=== PATIENT | male | born 1970 | race Caucasian/White ===

== ENCOUNTER 2025-01-08 13:26 | Emergency (ER) | payer OTHER, SELFPAY ==
[2025-01-08 13:28] VITALS: BP 134/99
--- NOTE | 2025-01-08 13:42 | ED.GENMED ---
History of Present Illness
General
Chief Complaint: Dental Problem
Source: patient
Time Seen by Provider: 01/08/25 13:35
History of Present Illness
History of Present Illness:
54-year-old male states that a tooth 'broke' a few days ago. He has not yet seen a doctor in follow-up. He went to bed today and when he awoke from his nap he noted increasing pain at this area associated with swelling of the lower mouth under the
tongue. He denies change in voice, change in swallowing, dyspnea, chest pain, neck pain, lip or tongue swelling, nausea, vomiting, or other complaints. Patient takes oxycodone for neck pain, this has not helped his pain today.
Past History
Past History
ED Past Medical History: Cancer (renal), GERD, HTN and NIDDM
ED Past Surgical History: Orthopedic (C4-5, C5-6, L4-5, R hand surgery ), Urological (renal w/ resection of L kidney) and Other (myringotomy tube placement 2003)
Social History
Tobacco: Smoker
Alcohol: Occasional
Drug: None
Personal: Single
Living: with family
Employment: Employed
Family History
Family History: Other (reviewed and non-contributory)
Phy Exam
Physical Exam
Physical Exam:
GENERAL: Alert , in no apparent distress
EYE: pupils equal and reactive, no photophobia
NECK: Supple, no significant adenopathy, no swelling noted.
ENT: o/p clr, mmm, no trismus, no drool, voice clear. Patient has multiple dental caries with a partial tooth fracture noted #27 with minimal gingival swelling. No fluctuance, drainage, submental swelling, tongue protrusion, or swelling noted
elsewhere. Tooth tender to percussion
CARDIAC: Regular rate and rhythm .
LUNGS: Clear breath sounds bilaterally, no acute respiratory distress, no wheezes/rales/rhonchi
ABDOMEN: Soft, without focal tenderness, no r/g, no cvat
NEUROLOGICAL: Alert and oriented, no focal neuro deficits
SKIN: Warm and dry, skin intact.
MUSCULOSKELETAL: No edema, well perfused.
PSYCH: Normal and appropriate interaction.
Course
Orders/Labs/Results
Orders:
Orders
01/08/25 13:42
Ketorolac [Toradol] 15 mg IM NOW STA
Penicillin V Potassium [Pen Vk] 500 mg PO NOW STA
Vital Signs
Initial and Last Documented VS:
Initial Vital Signs
Temp Pulse Resp BP Pulse Ox
98.6 F 125 20 134/99 99
01/08/25 13:28 01/08/25 13:28 01/08/25 13:28 01/08/25 13:28 01/08/25 13:28
Last Documented Vital Signs
Temp Pulse Resp BP Pulse Ox
98.6 F 125 20 134/99 99
01/08/25 13:28 01/08/25 13:28 01/08/25 13:28 01/08/25 13:28 01/08/25 13:28
*Pulse Oximetry
SaO2: 99
Oxygen Mode of Delivery: Room air
Patient hypoxic: no
*Critical Care Note
Total Time (30-74mins, 75-104mins- exclusive of procedures): Not Applicable
Update Note
Update Note:
Patient presents to the Emergency Department with __intraoral pain
Number and Complexity of Problems Addressed at the Encounter
� Chronic conditions affecting care:
� Acute Exacerbation and/or Progression of Chronic Illness:
� Differential Diagnosis includes: But not limited to dental infection, Reinier's angina, dental fracture, etc. etc.
Amount and/or Complexity of Data to be Reviewed and Analyzed
� I performed an independent evaluation of and my interpretation is:
EKG:
CT:
Xrays:
Laboratory Studies:
Other:
� Review of other/old records reveals:
� Clinical information was obtained by an independent historian:
� Prescriptions/Medications Considered but not given:
� Further testing considered but not performed:
Risk of Complications and/or Morbidity or Mortality of Patient Management
� Social determinants of health affecting care:
� Discussion with other providers (PCP, Hospitalists, Consultants, etc):
� Escalation of care including admission/observation vs risk of discharge considered: Exam very consistent with dental infection, mild. No findings to suggest Reinier's angina or any swelling/infectious process that would suggest
compromise of airway/swallowing. Discussed with patient importance of close follow-up and reasons to return to the emergency department. We will start him on antibiotics and advise adding nonsteroidals for pain.
ED Attending Note
-
Portions of this chart may have been created with voice recognition software.� Occasional wrong word or��sound alike� substitutions may have occurred due to the inherent limitations of voice recognition software.
Discharge Plan
Departure
Patient Disposition: Home (Routine Discharge)
Date of Disposition: 01/08/25
Time of Disposition: 13:45
Patient with high blood pressure during this ER visit?: Yes
Condition: Good
Discharge Problem:
Pain due to dental caries
Instructions: Dental Pain (DC), BLOOD PRESSURE
Prescriptions:
New
penicillin V potassium 500 mg tablet
500 mg PO QID 7 Days Qty: 28 0RF
No Action
gabapentin 600 MG tablet
600 mg PO TID
prazosin 1 MG capsule
1 mg PO TID
glipizide 5 MG tablet extended release 24hr
5 mg PO DAILY
pioglitazone 45 MG tablet
45 mg PO DAILY
acetaminophen 500 MG tablet
1,000 mg PO PRN (Reason: pain)
omeprazole 20 MG capsule,delayed release(DR/EC)
20 mg PO DAILY
fluticasone propionate 1 SPRAY spray,suspension
1 spray intranasal DAILY PRN (Reason: allergies)
atenolol 50 MG tablet
25 mg PO BID
ipratropium bromide 1 SPRAY spray,non-aerosol
2 spray intranasal TID PRN (Reason: allergies)
topiramate 50 MG tablet
50 mg PO DAILY
duloxetine 60 MG capsule,delayed release(DR/EC)
90 mg PO DAILY
metformin 1,000 MG tablet,ER adrian.retention 24 hr
1,000 mg PO TID
sitagliptin phosphate [Januvia] 100 MG tablet
100 mg PO DAILY
loratadine 10 MG capsule
10 mg PO DAILY
vit D3-folic [id number] [Folgard] 1 EACH tablet
1 ea PO
magnesium oxide 400 MG tablet
400 mg PO DAILY
Activity Restrictions/Additional Instructions:
PLEASE SEE YOUR DENTIST SOON POSSIBLE. IF YOU DEVELOP FEVER, CHILLS, DIFFICULTY SWALLOWING, PAIN WITH SWALLOWING, DIFFICULTY OPENING YOUR MOUTH, CHANGE IN VOICE, INCREASING OR NEW PAIN, INCREASING OR NEW SWELLING, OR OTHER WORRISOME SIGNS,
PLEASE RETURN TO THE ER IMMEDIATELY!
Interventions
Interventions:
*Risk Screen - Suicide Last Done: 01/08/25 13:31
*Neglect/Abuse Screening Last Done: 01/08/25 13:28
Discharge Date and Time
Print Language: KITTITIAN
[2025-01-08] MEDS: PEN VK 500 MG PO (13:53)
[2025-01-08] MEDS: TORADOL 15 MG IM (13:53)
== END 2025-01-08 13:57 | disposition home or self-care (01) ==
LOC: EMR 13:26
PROVIDERS: EMERGENCY PHYSICIAN Emergency Medicine; FAMILY PHYSICIAN Family Medicine
DX: K02.9 Dental caries, unspecified (principal); E11.9 Type 2 diabetes mellitus without complications; I10 Essential (primary) hypertension; K21.9 Gastro-esophageal reflux disease without esophagitis; F17.200 Nicotine dependence, unspecified, uncomplicated; Z79.84 Long term (current) use of oral hypoglycemic drugs; Z85.528 Personal history of other malignant neoplasm of kidney
CPT/HCPCS: 99284; 96372